=== PATIENT | male | born 1975 | race African-American/Black ===

== ENCOUNTER 2018-01-14 04:14 | Inpatient (IN) | payer MEDICARE, OTHER ==
[~2018-01-14] VITALS: Ht 182.9 cm; Wt 106.6 kg
[2018-01-14 06:15] VITALS: BP 172/123
[2018-01-14] MEDS ORDERED: SEROQUEL200 MG ORAL (06:45)
[2018-01-14] MEDS ORDERED: HYDROCORTISONE30 G2 TP (06:45)
[2018-01-14] MEDS ORDERED: KLONOPIN1 MG ORAL (06:45)
[2018-01-14] MEDS ORDERED: NORVASC10 MG ORAL (06:45)
[2018-01-14] MEDS ORDERED: LISINOPRIL20 MG ORAL (06:45)
[2018-01-14] MEDS ORDERED: ACETAMINOPHEN325 M1 ORAL (06:45)
[2018-01-14 08:00] VITALS: BP 178/119
[2018-01-14] MEDS: Lisinopril 20mg tab ORAL SCH (09:17)
[2018-01-14 10:34] LABS: BASOPHILS % (AUTO) 1.2 % (0.0-2.0); EOSINOPHILS % (AUTO) 4.1 % (0.0-3.0); HEMATOCRIT 40.2 % (42.0-52.0); HEMOGLOBIN 13.7 G/DL (14.2-18.0); LYMPHOCYTES % (AUTO) 20.9 % (20.0-45.0); MEAN CORPUSCULAR VOLUME 94 FL (80-99); MONOCYTES % (AUTO) 9.7 % (1.0-10.0); NEUTROPHILS % (AUTO) 64.1 % (45.0-75.0); PLATELET COUNT 197 K/UL (150-450); RED BLOOD COUNT 4.26 M/UL (4.70-6.10); WHITE BLOOD COUNT 9.4 K/UL (4.8-10.8)
[2018-01-14 10:45] LABS: ALANINE AMINOTRANSFERASE 30 U/L (12-78); ALBUMIN 3.4 G/DL (3.4-5.0); ALBUMIN/GLOBULIN RATIO 0.9 (1.0-2.7); ALKALINE PHOSPHATASE 55 U/L (46-116); ANION GAP 6 mmol/L (5-15); ASPARTATE AMINO TRANSFERASE 27 U/L (15-37); BILIRUBIN,TOTAL 0.3 MG/DL (0.2-1.0); BLOOD UREA NITROGEN 29 mg/dL (7-18); CALCIUM 9.1 MG/DL (8.5-10.1); CARBON DIOXIDE 27 MMOL/L (21-32); CHLORIDE 105 MMOL/L (98-107); CREATININE 1.7 MG/DL (0.55-1.30); PHOSPHORUS 3.5 MG/DL (2.5-4.9); POTASSIUM 3.7 MMOL/L (3.5-5.1); SODIUM 138 MMOL/L (136-145)
--- NOTE | 2018-01-14 11:25 | Consultation ---
History of Present Illness General Date patient seen: Jan 14, 2018 Present Illness HPI 42 year old male with hx of HTN, Schizophrenia, depression, cocaine abuse, presented to [facility] with CC of substernal heaviness and pain the pt stated that he is having AH no si/hi Allergies: Coded Allergies: HALOPERIDOL (Verified Allergy, Unknown, 01/14/18) Medication History Scheduled Amlodipine Besylate (Norvasc), 10 MG ORAL DAILY, (Reported) Clonazepam* (Klonopin*), 1 MG ORAL TID, (Reported) Hydrocortisone (Hydrocortisone Cream 2.5%), 1 APPLIC TP BID, (Reported) Lisinopril (Lisinopril*), 20 MG ORAL DAILY, (Reported) Quetiapine Fumarate* (Seroquel*), 200 MG ORAL BEDTIME, (Reported) Scheduled PRN Acetaminophen* (Acetaminophen 325MG Tablet*), 325 MG ORAL Q4H PRN for Mild Pain (Pain Scale 1-3), (Reported) Patient History Limited by: medical condition History Provided By: Patient, Medical Record, PMD Healthcare decision maker Resuscitation status Full Code Advanced Directive on File Past Medical/Surgical History Past Medical/Surgical History: (1) Cannabis abuse (2) Cocaine abuse (3) Schizophrenia (4) Hypertension (5) Acute coronary syndrome Review of Systems Psychiatric: Reports: prior hx, anxiety, depressed feelings Physical Exam General Appearance: no apparent distress, alert Neurologic: oriented x 3, responsive, depressed affect Last 24 Hour Vital Signs Date Time Temp Pulse Resp B/P (MAP) Pulse Ox O2 Delivery O2 Flow Rate FiO2 01/14/18 09:22 Room Air 01/14/18 09:17 178/119 01/14/18 09:17 67 178/119 01/14/18 08:00 97.7 67 18 178/119 (138) 96 97.7 01/14/18 06:40 Room Air 01/14/18 06:15 96.6 64 18 172/123 (139) 97 96.6 Laboratory Tests Test 01/14/18 09:50 White Blood Count 9.4 K/UL (4.8-10.8) Red Blood Count 4.26 M/UL (4.70-6.10) L Hemoglobin 13.7 G/DL (14.2-18.0) L Hematocrit 40.2 % (42.0-52.0) L Mean Corpuscular Volume 94 FL (80-99) Mean Corpuscular Hemoglobin 32.2 PG (27.0-31.0) H Mean Corpuscular Hemoglobin Concent 34.1 G/DL (32.0-36.0) Red Cell Distribution Width 12.0 % (11.6-14.8) Platelet Count 197 K/UL (150-450) Mean Platelet Volume 7.9 FL (6.5-10.1) Neutrophils (%) (Auto) 64.1 % (45.0-75.0) Lymphocytes (%) (Auto) 20.9 % (20.0-45.0) Monocytes (%) (Auto) 9.7 % (1.0-10.0) Eosinophils (%) (Auto) 4.1 % (0.0-3.0) H Basophils (%) (Auto) 1.2 % (0.0-2.0) Sodium Level 138 MMOL/L (136-145) Potassium Level 3.7 MMOL/L (3.5-5.1) Chloride Level 105 MMOL/L (98-107) Carbon Dioxide Level 27 MMOL/L (21-32) Anion Gap 6 mmol/L (5-15) Blood Urea Nitrogen 29 mg/dL (7-18) H Creatinine 1.7 MG/DL (0.55-1.30) H Estimat Glomerular Filtration Rate 54.4 mL/min (>60) Glucose Level 108 MG/DL (74-106) H Calcium Level 9.1 MG/DL (8.5-10.1) Phosphorus Level 3.5 MG/DL (2.5-4.9) Magnesium Level 1.9 MG/DL (1.8-2.4) Total Bilirubin 0.3 MG/DL (0.2-1.0) Aspartate Amino Transf (AST/SGOT) 27 U/L (15-37) Alanine Aminotransferase (ALT/SGPT) 30 U/L (12-78) Alkaline Phosphatase 55 U/L (46-116) Troponin I 0.035 ng/mL (0.000-0.056) Total Protein 7.2 G/DL (6.4-8.2) Albumin 3.4 G/DL (3.4-5.0) Globulin 3.8 g/dL Albumin/Globulin Ratio 0.9 (1.0-2.7) L Height (Feet): 6 Weight (Pounds): 235 Medications Current Medications Medications (Trade) Dose Ordered Sig/Matthias Route PRN Reason Start Time Stop Time Status Last Admin Dose Admin Acetaminophen (Tylenol) 650 mg Q6H PRN ORAL Mild Pain/Temp > 100.5 01/14/18 09:00 02/13/18 08:59 Amlodipine Besylate (Norvasc) 10 mg DAILY ORAL 01/14/18 09:00 02/13/18 08:59 01/14/18 09:17 Clonazepam (KlonoPIN) 1 mg Q8H PRN ORAL For Anxiety 01/14/18 09:00 01/21/18 08:59 01/14/18 10:52 Clonidine HCl (Catapres Tab) 0.1 mg Q6H PRN ORAL For High Blood Pressure 01/14/18 09:15 02/13/18 09:14 Heparin Sodium (Porcine) (Heparin 5000 units/ml) 5,000 units EVERY 12 HOURS SUBQ 01/14/18 21:00 02/13/18 20:59 Lisinopril (Prinivil) 20 mg DAILY ORAL 01/14/18 09:00 02/13/18 08:59 01/14/18 09:17 Quetiapine Fumarate (SEROquel) 200 mg HSPRN PRN ORAL Insomnia 01/14/18 21:00 02/13/18 20:59 Assessment/Plan Status: stable Assessment/Plan Schizophrenia, depression, cocaine abuse not at imminent dts/dto -seroquel 200mg qhs -klonopin 1mg qhs Wagner Lantigua MD Jan 14, 2018 11:25
[2018-01-14 12:00] VITALS: BP 162/111
--- NOTE | 2018-01-14 12:52 | Consultation ---
History of Present Illness Present Illness HPI 42 year old male with hx of HTN, Schizophrenia, depression, cocaine abuse, presented to [facility] with CC of substernal heaviness associated with shortness of breath, he had some cocaine 12 hours earlier. He was also c/o painless hematuria. On presentation to [place], he was asymptomatic. Once an acute MO was ruled out at [place], he was transferred to [place] for further treatment. Allergies: Coded Allergies: HALOPERIDOL (Verified Allergy, Unknown, 01/14/18) Medication History Scheduled Amlodipine Besylate (Norvasc), 10 MG ORAL DAILY, (Reported) Clonazepam* (Klonopin*), 1 MG ORAL TID, (Reported) Hydrocortisone (Hydrocortisone Cream 2.5%), 1 APPLIC TP BID, (Reported) Lisinopril (Lisinopril*), 20 MG ORAL DAILY, (Reported) Quetiapine Fumarate* (Seroquel*), 200 MG ORAL BEDTIME, (Reported) Scheduled PRN Acetaminophen* (Acetaminophen 325MG Tablet*), 325 MG ORAL Q4H PRN for Mild Pain (Pain Scale 1-3), (Reported) Patient History Healthcare decision maker Resuscitation status Full Code Advanced Directive on File Past Medical/Surgical History Past Medical/Surgical History: (1) Cocaine abuse (2) Cannabis abuse (3) Hypertension (4) Schizophrenia Review of Systems All Other Systems: negative except mentioned in HPI Physical Exam General Appearance: WD/WN Lines, tubes and drains: peripheral HEENT: normocephalic, atraumatic Neck: non-tender, normal alignment Respiratory/Chest: chest wall non-tender, lungs clear Breasts: no masses Cardiovascular/Chest: normal peripheral pulses Abdomen: normal bowel sounds, non tender Genitourinary/Rectal: normal genital exam Extremities: normal range of motion Last 24 Hour Vital Signs Date Time Temp Pulse Resp B/P (MAP) Pulse Ox O2 Delivery O2 Flow Rate FiO2 01/14/18 09:22 Room Air 01/14/18 09:17 178/119 01/14/18 09:17 67 178/119 01/14/18 08:00 97.7 67 18 178/119 (138) 96 97.7 01/14/18 06:40 Room Air 01/14/18 06:15 96.6 64 18 172/123 (139) 97 96.6 Laboratory Tests Test 01/14/18 09:50 White Blood Count 9.4 K/UL (4.8-10.8) Red Blood Count 4.26 M/UL (4.70-6.10) L Hemoglobin 13.7 G/DL (14.2-18.0) L Hematocrit 40.2 % (42.0-52.0) L Mean Corpuscular Volume 94 FL (80-99) Mean Corpuscular Hemoglobin 32.2 PG (27.0-31.0) H Mean Corpuscular Hemoglobin Concent 34.1 G/DL (32.0-36.0) Red Cell Distribution Width 12.0 % (11.6-14.8) Platelet Count 197 K/UL (150-450) Mean Platelet Volume 7.9 FL (6.5-10.1) Neutrophils (%) (Auto) 64.1 % (45.0-75.0) Lymphocytes (%) (Auto) 20.9 % (20.0-45.0) Monocytes (%) (Auto) 9.7 % (1.0-10.0) Eosinophils (%) (Auto) 4.1 % (0.0-3.0) H Basophils (%) (Auto) 1.2 % (0.0-2.0) Sodium Level 138 MMOL/L (136-145) Potassium Level 3.7 MMOL/L (3.5-5.1) Chloride Level 105 MMOL/L (98-107) Carbon Dioxide Level 27 MMOL/L (21-32) Anion Gap 6 mmol/L (5-15) Blood Urea Nitrogen 29 mg/dL (7-18) H Creatinine 1.7 MG/DL (0.55-1.30) H Estimat Glomerular Filtration Rate 54.4 mL/min (>60) Glucose Level 108 MG/DL (74-106) H Calcium Level 9.1 MG/DL (8.5-10.1) Phosphorus Level 3.5 MG/DL (2.5-4.9) Magnesium Level 1.9 MG/DL (1.8-2.4) Total Bilirubin 0.3 MG/DL (0.2-1.0) Aspartate Amino Transf (AST/SGOT) 27 U/L (15-37) Alanine Aminotransferase (ALT/SGPT) 30 U/L (12-78) Alkaline Phosphatase 55 U/L (46-116) Troponin I 0.035 ng/mL (0.000-0.056) Total Protein 7.2 G/DL (6.4-8.2) Albumin 3.4 G/DL (3.4-5.0) Globulin 3.8 g/dL Albumin/Globulin Ratio 0.9 (1.0-2.7) L Height (Feet): 6 Weight (Pounds): 235 Medications Current Medications Medications (Trade) Dose Ordered Sig/Matthias Route PRN Reason Start Time Stop Time Status Last Admin Dose Admin Acetaminophen (Tylenol) 650 mg Q6H PRN ORAL Mild Pain/Temp > 100.5 01/14/18 09:00 02/13/18 08:59 Amlodipine Besylate (Norvasc) 10 mg DAILY ORAL 01/14/18 09:00 02/13/18 08:59 01/14/18 09:17 Clonazepam (KlonoPIN) 1 mg Q8H PRN ORAL For Anxiety 01/14/18 09:00 01/21/18 08:59 01/14/18 10:52 Clonidine HCl (Catapres Tab) 0.1 mg Q6H PRN ORAL For High Blood Pressure 01/14/18 09:15 02/13/18 09:14 Heparin Sodium (Porcine) (Heparin 5000 units/ml) 5,000 units EVERY 12 HOURS SUBQ 01/14/18 21:00 02/13/18 20:59 Lisinopril (Prinivil) 20 mg DAILY ORAL 01/14/18 09:00 02/13/18 08:59 01/14/18 09:17 Quetiapine Fumarate (SEROquel) 200 mg HSPRN PRN ORAL Insomnia 01/14/18 21:00 02/13/18 20:59 Assessment/Plan Problem List: (1) Acute coronary syndrome ICD Codes: I24.9 - Acute ischemic heart disease, unspecified SNOMED: 427414111 (2) Cocaine abuse ICD Codes: F14.10 - Cocaine abuse, uncomplicated SNOMED: 09283243 (3) Cannabis abuse ICD Codes: F12.10 - Cannabis abuse, uncomplicated SNOMED: 93261452 (4) Hypertension ICD Codes: I10 - Essential (primary) hypertension SNOMED: 35349775 (5) Schizophrenia ICD Codes: F20.9 - Schizophrenia, unspecified SNOMED: 21609548 Assessment/Plan serial ekg, troponin, echo cardiology to see psych f/u for schizophrenia monitor BP symptomatic treatment Cristin Page MD Jan 14, 2018 12:52
[2018-01-14 16:00] VITALS: BP 157/107
--- NOTE | 2018-01-14 18:43 | History & Physical ---
History and Physical History & Physicial Dictated for Int Med-Dr Franz no. [id number] Wilberto Martinez MD Jan 14, 2018 18:43
[2018-01-14] MEDS ORDERED: Lexiscan 0.4mg/5ml syringe IV PRN (18:45)
[2018-01-14 20:00] VITALS: BP 156/96
[2018-01-14] MEDS ORDERED: QUEtiapine 200mg tab ORAL PRN (21:00)
[2018-01-14] MEDS: Heparin 5000 units/ml inj SUBQ SCH (21:00)
--- NOTE | 2018-01-14 23:45 | History and Physical Report ---
DATE OF ADMISSION: 01/14/2018 CHIEF COMPLAINT: The patient is a 42-year-old male, who presents with a chief complaint of shortness of breath, chest pain, and hematuria. HISTORY OF PRESENT ILLNESS: Began on 01/13/2018. The patient began to experience shortness of breath. The patient then started to experience tightness in his chest. The patient denies corinne chest pain, however, states his chest felt "tight." This was substernal. The patient also said he had one episode of bright red blood in his urine. The patient initially presented to [facility] emergency room. The patient is transferred to [facility] for insurance purposes. The patient is admitted for shortness of breath and chest tightness to rule out acute coronary syndrome. The patient is also admitted for hematuria. PAST MEDICAL HISTORY: Significant for, 1. Hypertension. 2. Schizoaffective disorder. PAST SURGICAL HISTORY: Significant for laparoscopic cholecystectomy. CURRENT MEDICATIONS: 1. Klonopin 2 mg one tablet p.o. 3 times daily. 2. Seroquel 300 mg one tablet p.o. at bedtime. 3. Prozac 40 mg p.o. daily. 4. Hydrochlorothiazide 25 mg one tablet p.o. daily. 5. Amlodipine 10 mg p.o. daily. 6. Ideal 10/325 mg one tablet p.o. q.6 h. p.r.n. ALLERGIES: . SOCIAL HISTORY: The patient is single and lives with roommates. The patient admits to tobacco use one pack of cigarettes daily. The patient denies alcohol use. REVIEW OF SYSTEMS: CONSTITUTIONAL: The patient denies weight loss or weight gain. The patient denies fevers or chills. HEENT: The patient denies ear or throat pain. The patient denies headache. CARDIOVASCULAR: The patient complains of chest tightness as above. The patient denies palpitations. CHEST: The patient complains of shortness of breath as above. The patient denies wheezes. ABDOMEN: The patient denies nausea, vomiting, diarrhea, or constipation. GENITOURINARY: The patient denies dysuria or increased frequency of urination. NEUROMUSCULAR: The patient denies seizures or generalized weakness. PHYSICAL EXAMINATION: VITAL SIGNS: Temperature 97.7, respirations 18, pulse 67, and blood pressure 178/119. GENERAL: The patient is a well-developed and well-nourished male, in no apparent distress. HEENT: Eyes, pupils are equal and responsive to light and accommodation. Extraocular movements are intact. NECK: Supple without lymphadenopathy. CHEST: Lungs are clear to auscultation bilaterally without wheezes or rales. CARDIOVASCULAR: Regular rhythm and rate. S1 and S2 are normal without murmurs, rubs, or gallops. ABDOMEN: Soft, nontender, and nondistended. Positive bowel sounds. No evidence of hepatosplenomegaly. Currently, no rebound or guarding noted. EXTREMITIES: Negative for clubbing, cyanosis, or edema. RECTAL/GENITAL: Not performed. NEUROLOGIC: Cranial nerves II through XII are grossly intact without focal deficits. Motor strength is 5/5 bilaterally. Deep tendon reflexes are 2+ plantar. LABORATORY STUDIES: WBC 9.4, hemoglobin 13.7, hematocrit 40.2, and platelets 197,000. Sodium 138, potassium 3.7, chloride 105, CO2 27, BUN 29, creatinine 1.7, and glucose 108. Troponin 0.035. ASSESSMENT: This is a 42-year-old male. 1. Shortness of breath. 2. Chest pain. 3. Uncontrolled hypertension. 4. Schizoaffective disorder. TREATMENT: 1. Shortness of breath/chest pain. A Cardiology consultation is pending with Dr. Mcneal. We will follow recommendation of Cardiology. A Cardiolite stress test is pending. 2. Uncontrolled hypertension. The patient has been restarted on hydrochlorothiazide and amlodipine as above. 3. Schizoaffective disorder. Continue clonazepam, Prozac, and Seroquel as above. 4. Hematuria. A urine culture is pending. A urinalysis is pending. Wilberto Martinez M.D. DR: MODESTO JOB#: [id number] CC:
[2018-01-15] VITALS: BP 152/95
[2018-01-15 04:00] VITALS: BP 156/94
[2018-01-15 07:44] LABS: BASOPHILS % (AUTO) 1.2 % (0.0-2.0); EOSINOPHILS % (AUTO) 3.8 % (0.0-3.0); HEMATOCRIT 40.4 % (42.0-52.0); HEMOGLOBIN 13.5 G/DL (14.2-18.0); LYMPHOCYTES % (AUTO) 30.5 % (20.0-45.0); MEAN CORPUSCULAR VOLUME 95 FL (80-99); MONOCYTES % (AUTO) 8.4 % (1.0-10.0); NEUTROPHILS % (AUTO) 56.2 % (45.0-75.0); PLATELET COUNT 197 K/UL (150-450); RED BLOOD COUNT 4.24 M/UL (4.70-6.10); RED CELL DISTRIBUTION WIDTH 12.4 % (11.6-14.8); WHITE BLOOD COUNT 8.5 K/UL (4.8-10.8)
[2018-01-15 08:00] VITALS: BP 151/100
[2018-01-15 08:06] LABS: ANION GAP 7 mmol/L (5-15); BLOOD UREA NITROGEN 39 mg/dL (7-18); CALCIUM 8.9 MG/DL (8.5-10.1); CARBON DIOXIDE 26 MMOL/L (21-32); CHLORIDE 106 MMOL/L (98-107); POTASSIUM 4.1 MMOL/L (3.5-5.1); SODIUM 139 MMOL/L (136-145)
[2018-01-15] MEDS: Heparin 5000 units/ml inj SUBQ SCH (09:00)
[2018-01-15] MEDS: Lisinopril 20mg tab ORAL SCH (09:00)
--- NOTE | 2018-01-15 10:39 | Consultation ---
History of Present Illness General Date patient seen: Jan 15, 2018 Time patient seen: 10:28 Present Illness HPI 42 year old male with uncontrolled hypertension, CKD, Schizophrenia, depression , cocaine abuse presents with chest pain, plan for stress test. Troponin negative x2, echo with preserved LV function but evidence of hypertensive heart disease Allergies: Coded Allergies: HALOPERIDOL (Verified Allergy, Unknown, 01/14/18) Medication History Scheduled Amlodipine Besylate (Norvasc), 10 MG ORAL DAILY, (Reported) Clonazepam* (Klonopin*), 1 MG ORAL TID, (Reported) Hydrocortisone (Hydrocortisone Cream 2.5%), 1 APPLIC TP BID, (Reported) Lisinopril (Lisinopril*), 20 MG ORAL DAILY, (Reported) Quetiapine Fumarate* (Seroquel*), 200 MG ORAL BEDTIME, (Reported) Scheduled PRN Acetaminophen* (Acetaminophen 325MG Tablet*), 325 MG ORAL Q4H PRN for Mild Pain (Pain Scale 1-3), (Reported) Patient History Healthcare decision maker Resuscitation status Full Code Advanced Directive on File Review of Systems Constitutional: Reports: no symptoms Eye: Reports: no symptoms ENT: Reports: no symptoms Respiratory: Reports: no symptoms Cardiovascular: Reports: chest pain Gastrointestinal: Reports: no symptoms Genitourinary: Reports: no symptoms Musculoskeletal: Reports: no symptoms Skin: Reports: no symptoms Psychiatric: Reports: no symptoms Neurological: Reports: no symptoms Endocrine: Reports: no symptoms Hematologic/Lymphatic: Reports: no symptoms Physical Exam General Appearance: no apparent distress, alert Lines, tubes and drains: peripheral HEENT: normocephalic, atraumatic, anicteric, mucous membranes moist Neck: non-tender, normal alignment, supple Respiratory/Chest: chest wall non-tender, lungs clear Cardiovascular/Chest: normal peripheral pulses, normal rate, regular rhythm Abdomen: normal bowel sounds, non tender Extremities: normal range of motion, non-tender 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 Last 24 Hour Vital Signs Date Time Temp Pulse Resp B/P (MAP) Pulse Ox O2 Delivery O2 Flow Rate FiO2 01/15/18 04:00 97.7 63 20 156/94 (114) 95 97.7 01/15/18 04:00 69 01/15/18 00:00 83 01/15/18 00:00 97.8 70 20 152/95 (114) 97 97.8 01/14/18 20:00 Room Air 01/14/18 20:00 100 01/14/18 20:00 98.1 74 20 156/96 (116) 98 98.1 01/14/18 18:30 98.1 01/14/18 17:56 98.1 01/14/18 16:00 97.3 63 18 157/107 (124) 99 97.3 01/14/18 16:00 68 01/14/18 12:00 72 01/14/18 12:00 98.1 66 18 162/111 (128) 97 98.1 Intake and Output 01/14/18 01/15/18 19:00 07:00 Intake Total 620 ml 500 ml Balance 620 ml 500 ml Intake Oral 620 ml 500 ml # Voids 3 Laboratory Tests Test 01/15/18 06:35 White Blood Count 8.5 K/UL (4.8-10.8) Red Blood Count 4.24 M/UL (4.70-6.10) L Hemoglobin 13.5 G/DL (14.2-18.0) L Hematocrit 40.4 % (42.0-52.0) L Mean Corpuscular Volume 95 FL (80-99) Mean Corpuscular Hemoglobin 31.9 PG (27.0-31.0) H Mean Corpuscular Hemoglobin Concent 33.5 G/DL (32.0-36.0) Red Cell Distribution Width 12.4 % (11.6-14.8) Platelet Count 197 K/UL (150-450) Mean Platelet Volume 8.3 FL (6.5-10.1) Neutrophils (%) (Auto) 56.2 % (45.0-75.0) Lymphocytes (%) (Auto) 30.5 % (20.0-45.0) Monocytes (%) (Auto) 8.4 % (1.0-10.0) Eosinophils (%) (Auto) 3.8 % (0.0-3.0) H Basophils (%) (Auto) 1.2 % (0.0-2.0) Sodium Level 139 MMOL/L (136-145) Potassium Level 4.1 MMOL/L (3.5-5.1) Chloride Level 106 MMOL/L (98-107) Carbon Dioxide Level 26 MMOL/L (21-32) Anion Gap 7 mmol/L (5-15) Blood Urea Nitrogen 39 mg/dL (7-18) H Creatinine 2.0 MG/DL (0.55-1.30) H Estimat Glomerular Filtration Rate 45.1 mL/min (>60) Glucose Level 95 MG/DL (74-106) Calcium Level 8.9 MG/DL (8.5-10.1) Troponin I 0.022 ng/mL (0.000-0.056) Height (Feet): 6 Weight (Pounds): 235 Medications Current Medications Medications (Trade) Dose Ordered Sig/Matthias Route PRN Reason Start Time Stop Time Status Last Admin Dose Admin Acetaminophen (Tylenol) 650 mg Q6H PRN ORAL Mild Pain/Temp > 100.5 01/14/18 09:00 02/13/18 08:59 01/15/18 05:55 Amlodipine Besylate (Norvasc) 10 mg DAILY ORAL 01/14/18 09:00 02/13/18 08:59 01/14/18 09:17 Clonazepam (KlonoPIN) 1 mg Q8H PRN ORAL For Anxiety 01/14/18 09:00 01/21/18 08:59 01/15/18 05:56 Clonidine HCl (Catapres Tab) 0.1 mg Q6H PRN ORAL For High Blood Pressure 01/14/18 09:15 02/13/18 09:14 Heparin Sodium (Porcine) (Heparin 5000 units/ml) 5,000 units EVERY 12 HOURS SUBQ 01/14/18 21:00 02/13/18 20:59 Hydrocortisone (Anusol HC) 1 applic BIDPRN PRN TOPIC Itching/Pruritis 01/14/18 13:15 02/13/18 13:14 01/14/18 17:56 Lisinopril (Prinivil) 20 mg DAILY ORAL 01/14/18 09:00 02/13/18 08:59 01/14/18 09:17 Quetiapine Fumarate (SEROquel) 200 mg BEDTIME ORAL 01/15/18 21:00 02/14/18 20:59 Regadenoson (Lexiscan) 0.4 mg ONCE PRN IV STRESS TEST 01/14/18 18:45 01/15/18 23:59 Temazepam (Restoril) 15 mg HSPRN PRN ORAL Insomnia 01/14/18 21:00 01/21/18 20:59 Assessment/Plan Status: stable Assessment/Plan Assessment: Chest pain CKD/LISA Hypertensive heart disease Hypertension Cocaine abuse Schizophrenia Plan: Echo reviewed Stress test pending ACS ruled out with troponin Add alpha radames for hypertension management given hx of cocaine abuse: Start cardura 2 mg, continue Norvasc Salt restriction substance abuse counseling Graham Mcneal MD Jan 15, 2018 10:39
[2018-01-15 11:18] VITALS: BP 136/88
--- NOTE | 2018-01-15 11:42 | Pulmonology Progress Note ---
Assessment/Plan Problems: (1) Acute coronary syndrome (2) Cocaine abuse (3) Cannabis abuse (4) Hypertension (5) Schizophrenia Assessment/Plan stress test today no new complains ;no more episode of hematuria renal function stable Subjective ROS Limited/Unobtainable: No Constitutional: Reports: no symptoms HEENT: Repors: no symptoms Allergies: Coded Allergies: HALOPERIDOL (Verified Allergy, Unknown, 01/14/18) Objective Last 24 Hour Vital Signs Date Time Temp Pulse Resp B/P (MAP) Pulse Ox O2 Delivery O2 Flow Rate FiO2 01/15/18 11:18 63 136/88 (104) 01/15/18 09:00 Room Air 01/15/18 08:00 69 01/15/18 08:00 96.3 59 20 151/100 (117) 100 96.3 01/15/18 04:00 97.7 63 20 156/94 (114) 95 97.7 01/15/18 04:00 69 01/15/18 00:00 83 01/15/18 00:00 97.8 70 20 152/95 (114) 97 97.8 01/14/18 20:00 Room Air 01/14/18 20:00 100 01/14/18 20:00 98.1 74 20 156/96 (116) 98 98.1 01/14/18 18:30 98.1 01/14/18 17:56 98.1 01/14/18 16:00 97.3 63 18 157/107 (124) 99 97.3 01/14/18 16:00 68 01/14/18 12:00 72 01/14/18 12:00 98.1 66 18 162/111 (128) 97 98.1 Intake and Output 01/14/18 01/15/18 19:00 07:00 Intake Total 620 ml 500 ml Balance 620 ml 500 ml Intake Oral 620 ml 500 ml # Voids 3 General Appearance: WD/WN HEENT: normocephalic, atraumatic Respiratory/Chest: chest wall non-tender, lungs clear Cardiovascular: normal peripheral pulses, normal rate Abdomen: normal bowel sounds, soft, non tender Extremities: no cyanosis 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, alert Lymphatic: no neck adenopathy Laboratory Tests 01/15/18 06:35: White Blood Count 8.5, Red Blood Count 4.24L, Hemoglobin 13.5L, Hematocrit 40.4L , Mean Corpuscular Volume 95, Mean Corpuscular Hemoglobin 31.9H, Mean Corpuscular Hemoglobin Concent 33.5, Red Cell Distribution Width 12.4, Platelet Count 197, Mean Platelet Volume 8.3, Neutrophils (%) (Auto) 56.2, Lymphocytes (% ) (Auto) 30.5, Monocytes (%) (Auto) 8.4, Eosinophils (%) (Auto) 3.8H, Basophils (%) (Auto) 1.2, Sodium Level 139, Potassium Level 4.1, Chloride Level 106, Carbon Dioxide Level 26, Anion Gap 7, Blood Urea Nitrogen 39H, Creatinine 2.0H, Estimat Glomerular Filtration Rate 45.1, Glucose Level 95, Calcium Level 8.9, Troponin I 0.022 Current Medications Medications (Trade) Dose Ordered Sig/Matthias Route PRN Reason Start Time Stop Time Status Last Admin Dose Admin Acetaminophen (Tylenol) 650 mg Q6H PRN ORAL Mild Pain/Temp > 100.5 01/14/18 09:00 02/13/18 08:59 01/15/18 05:55 Amlodipine Besylate (Norvasc) 10 mg DAILY ORAL 01/14/18 09:00 02/13/18 08:59 01/14/18 09:17 Clonazepam (KlonoPIN) 1 mg Q8H PRN ORAL For Anxiety 01/14/18 09:00 01/21/18 08:59 01/15/18 05:56 Clonidine HCl (Catapres Tab) 0.1 mg Q6H PRN ORAL For High Blood Pressure 01/14/18 09:15 02/13/18 09:14 Doxazosin Mesylate (Cardura) 2 mg DAILY ORAL 01/16/18 09:00 02/15/18 08:59 Heparin Sodium (Porcine) (Heparin 5000 units/ml) 5,000 units EVERY 12 HOURS SUBQ 01/14/18 21:00 02/13/18 20:59 Hydrocortisone (Anusol HC) 1 applic BIDPRN PRN TOPIC Itching/Pruritis 01/14/18 13:15 02/13/18 13:14 01/14/18 17:56 Lisinopril (Prinivil) 20 mg DAILY ORAL 01/14/18 09:00 02/13/18 08:59 01/14/18 09:17 Quetiapine Fumarate (SEROquel) 200 mg BEDTIME ORAL 01/15/18 21:00 02/14/18 20:59 Regadenoson (Lexiscan) 0.4 mg ONCE PRN IV STRESS TEST 01/14/18 18:45 01/15/18 23:59 Temazepam (Restoril) 15 mg HSPRN PRN ORAL Insomnia 01/14/18 21:00 01/21/18 20:59 Cristin Pgae MD Jan 15, 2018 11:42
[2018-01-15 12:00] VITALS: BP 136/88
--- NOTE | 2018-01-15 13:52 | General Progress Note ---
Assessment/Plan Assessment/Plan Schizophrenia, depression, cocaine abuse not at imminent dts/dto -seroquel 200mg qhs -klonopin 1mg qhs Subjective Date patient seen: Jan 15, 2018 Neurologic/Psychiatric: Reports: anxiety, depressed, emotional problems Allergies: Coded Allergies: HALOPERIDOL (Verified Allergy, Unknown, 01/14/18) Objective Last 24 Hour Vital Signs Date Time Temp Pulse Resp B/P (MAP) Pulse Ox O2 Delivery O2 Flow Rate FiO2 01/15/18 11:18 63 136/88 (104) 01/15/18 09:00 Room Air 01/15/18 08:00 69 01/15/18 08:00 96.3 59 20 151/100 (117) 100 96.3 01/15/18 04:00 97.7 63 20 156/94 (114) 95 97.7 01/15/18 04:00 69 01/15/18 00:00 83 01/15/18 00:00 97.8 70 20 152/95 (114) 97 97.8 01/14/18 20:00 Room Air 01/14/18 20:00 100 01/14/18 20:00 98.1 74 20 156/96 (116) 98 98.1 01/14/18 18:30 98.1 01/14/18 17:56 98.1 01/14/18 16:00 97.3 63 18 157/107 (124) 99 97.3 01/14/18 16:00 68 Intake and Output 01/14/18 01/15/18 19:00 07:00 Intake Total 620 ml 500 ml Balance 620 ml 500 ml Intake Oral 620 ml 500 ml # Voids 3 Laboratory Tests 01/15/18 06:35: White Blood Count 8.5, Red Blood Count 4.24L, Hemoglobin 13.5L, Hematocrit 40.4L , Mean Corpuscular Volume 95, Mean Corpuscular Hemoglobin 31.9H, Mean Corpuscular Hemoglobin Concent 33.5, Red Cell Distribution Width 12.4, Platelet Count 197, Mean Platelet Volume 8.3, Neutrophils (%) (Auto) 56.2, Lymphocytes (% ) (Auto) 30.5, Monocytes (%) (Auto) 8.4, Eosinophils (%) (Auto) 3.8H, Basophils (%) (Auto) 1.2, Sodium Level 139, Potassium Level 4.1, Chloride Level 106, Carbon Dioxide Level 26, Anion Gap 7, Blood Urea Nitrogen 39H, Creatinine 2.0H, Estimat Glomerular Filtration Rate 45.1, Glucose Level 95, Calcium Level 8.9, Troponin I 0.022 Height (Feet): 6 Weight (Pounds): 235 General Appearance: no apparent distress, alert Neurologic: oriented x 3, responsive, depressed affect Wagner Lantigua MD Jan 15, 2018 13:52
--- NOTE | 2018-01-15 14:39 | Diagnostic Imaging Report ---
Indication: chest pain Technique: The study was conducted under the supervision of a it systems engineer. lexiscan (regadenoson) infusion over 10 seconds followed by intravenous administration of 32.5 mCi of technetium 99m Myoview was performed. Three plane SPECT imaging of the heart was then performed. A resting study was performed as part of the one-day protocol with 10.8 mCi of technetium 99m myoview injected intravenously at that time. Three plane SPECT imaging of the heart was obtained. Comparison: None Clinical data: 1. Clinical response: Non ischemic 2. Electrocardiographic response: Non ischemic Findings: The myocardial perfusion scan demonstrates no definite fixed or reversible perfusion defects. There is some hypoperfusion of the inferior wall which is probably due to diaphragmatic attenuation. There are no reversible segments identified to suggest ischemia. Left ventricular ejection fraction is estimated at 56% which is in the lower side of normal. IMPRESSION: Negative myocardial perfusion scan. LVEF estimated at 56%
--- NOTE | 2018-01-15 15:32 | Cardiology Report ---
APPROVED REPORT EKG Measurement Heart [id number] Normal sinus rhythm T wave abnormality, consider lateral ischemia Abnormal ECG
[2018-01-15 16:00] VITALS: BP 138/78
--- NOTE | 2018-01-15 18:52 | Internal Med Progress Note ---
Subjective Date of Service: Jan 15, 2018 Physician Name Wilberto Martinez Attending Physician Esteban Franz MD Current Medications Medications (Trade) Dose Ordered Sig/Matthias Route PRN Reason Start Time Stop Time Status Last Admin Dose Admin Acetaminophen (Tylenol) 650 mg Q6H PRN ORAL Mild Pain/Temp > 100.5 01/14/18 09:00 02/13/18 08:59 01/15/18 05:55 Amlodipine Besylate (Norvasc) 10 mg DAILY ORAL 01/14/18 09:00 02/13/18 08:59 01/14/18 09:17 Clonazepam (KlonoPIN) 1 mg Q8H PRN ORAL For Anxiety 01/14/18 09:00 01/21/18 08:59 01/15/18 15:24 Clonidine HCl (Catapres Tab) 0.1 mg Q6H PRN ORAL For High Blood Pressure 01/14/18 09:15 02/13/18 09:14 Doxazosin Mesylate (Cardura) 2 mg DAILY ORAL 01/16/18 09:00 02/15/18 08:59 Heparin Sodium (Porcine) (Heparin 5000 units/ml) 5,000 units EVERY 12 HOURS SUBQ 01/14/18 21:00 02/13/18 20:59 Hydrocortisone (Anusol HC) 1 applic BIDPRN PRN TOPIC Itching/Pruritis 01/14/18 13:15 02/13/18 13:14 01/14/18 17:56 Lisinopril (Prinivil) 20 mg DAILY ORAL 01/14/18 09:00 02/13/18 08:59 01/14/18 09:17 Quetiapine Fumarate (SEROquel) 200 mg BEDTIME ORAL 01/15/18 21:00 02/14/18 20:59 Regadenoson (Lexiscan) 0.4 mg ONCE PRN IV STRESS TEST 01/14/18 18:45 01/15/18 23:59 Temazepam (Restoril) 15 mg HSPRN PRN ORAL Insomnia 01/14/18 21:00 01/21/18 20:59 Allergies: Coded Allergies: HALOPERIDOL (Verified Allergy, Unknown, 01/14/18) ROS Limited/Unobtainable: No Constitutional: Reports: no symptoms HEENT: Reports: no symptoms Cardiovascular: Reports: chest pain Respiratory: Reports: shortness of breath Gastrointestinal/Abdominal: Reports: no symptoms Genitourinary: Reports: no symptoms Neurologic/Psychiatric: Reports: no symptoms Subjective 42 YO M admitted with chest pain and shortness of breath. Cover for Cecil Nix-Dr Franz Objective Last Vital Signs Date Time Temp Pulse Resp B/P (MAP) Pulse Ox O2 Delivery O2 Flow Rate FiO2 01/15/18 12:00 96.6 56 20 136/88 (104) 100 96.6 01/15/18 09:00 Room Air General Appearance: WD/WN, no apparent distress, alert EENT: PERRL/EOMI, normal ENT inspection, TMs normal Neck: non-tender, normal alignment, supple, normal inspection Cardiovascular: normal peripheral pulses, normal rate, regular rhythm, no gallop/murmur, no JVD Respiratory/Chest: chest wall non-tender, lungs clear, normal breath sounds, no respiratory distress, no accessory muscle use Abdomen: normal bowel sounds, non tender, soft, no organomegaly, no mass Extremities: normal range of motion, non-tender Neurologic: sheet sorter II-XII grossly normal, no motor/sensory deficits Skin: normal pigmentation, warm/dry Laboratory Tests Test 01/15/18 06:35 White Blood Count 8.5 K/UL (4.8-10.8) Red Blood Count 4.24 M/UL (4.70-6.10) L Hemoglobin 13.5 G/DL (14.2-18.0) L Hematocrit 40.4 % (42.0-52.0) L Mean Corpuscular Volume 95 FL (80-99) Mean Corpuscular Hemoglobin 31.9 PG (27.0-31.0) H Mean Corpuscular Hemoglobin Concent 33.5 G/DL (32.0-36.0) Red Cell Distribution Width 12.4 % (11.6-14.8) Platelet Count 197 K/UL (150-450) Mean Platelet Volume 8.3 FL (6.5-10.1) Neutrophils (%) (Auto) 56.2 % (45.0-75.0) Lymphocytes (%) (Auto) 30.5 % (20.0-45.0) Monocytes (%) (Auto) 8.4 % (1.0-10.0) Eosinophils (%) (Auto) 3.8 % (0.0-3.0) H Basophils (%) (Auto) 1.2 % (0.0-2.0) Sodium Level 139 MMOL/L (136-145) Potassium Level 4.1 MMOL/L (3.5-5.1) Chloride Level 106 MMOL/L (98-107) Carbon Dioxide Level 26 MMOL/L (21-32) Anion Gap 7 mmol/L (5-15) Blood Urea Nitrogen 39 mg/dL (7-18) H Creatinine 2.0 MG/DL (0.55-1.30) H Estimat Glomerular Filtration Rate 45.1 mL/min (>60) Glucose Level 95 MG/DL (74-106) Calcium Level 8.9 MG/DL (8.5-10.1) Troponin I 0.022 ng/mL (0.000-0.056) Microbiology Date/Time Source Procedure Growth Status 01/14/18 19:50 Urine,Clean Catch Urine Culture - Preliminary NO GROWTH Resulted Intake and Output 01/14/18 01/15/18 19:00 07:00 Intake Total 620 ml 500 ml Balance 620 ml 500 ml Intake Oral 620 ml 500 ml # Voids 3 Assessment/Plan Problem List: (1) Chest pain (2) Hematuria Assessment & Plan: Await urinalysis and urine cult (3) Hypertension Assessment & Plan: Uncontrolled-see cardiology recs (4) Schizophrenia Status: not improved Wilberto Martinez MD Jan 15, 2018 18:52
[2018-01-15] MEDS ORDERED: QUEtiapine 200mg tab ORAL SCH (21:00)
[2018-01-16] MEDS ORDERED: Doxazosin 4mg tab ORAL SCH (09:00)
--- NOTE | 2018-01-18 13:17 | Discharge Summary ---
Discharge Summary Discharge Summary _ DATE OF ADMISSION: 01/14/2018 DATE OF DISCHARGE: 01/15/2018. Patient signed against medical advice. REASON FOR ADMISSION: 42 years old male with past medical history of hypertension, schizoaffective disorder, presented to emergency department with chief complaint of shortness of breath and chest pain . Patient initially present presented to [facility] emergency department. Upon evaluation troponin was negative. EKG revealed no acute ischemic changes . No leukocytosis, stable hemoglobin and hematocrit . BUN 29, creatinine 1.7, stable electrolytes . Blood pressure was elevated . Urine toxicology screen was positive for cocaine and cannabis. Patient was subsequently transferred to [facility] with diagnosis of shortness of breath, chest pain rule, out acute coronary syndrome , uncontrolled hypertension ,schizoaffective disorder. CONSULTANTS: middle school music teacher Dr. Mcneal pulmonary Dr. Page psychiatrist [facility] COURSE: Patient admitted to telemetry floor. Serial troponin were negative . EKG revealed no acute ischemic changes . Patient was ruled out for acute coronary syndrome. [employer] closely followed. Blood pressure was managed with calcium channel radames, and shaheed inhibitor. Alpha-radames was added by middle school music teacher for better blood pressure control . Patient was counseled lt on compliance with medication regimen and salt restriction diet. Echocardiogram revealed preserved ejection fraction of 60%, mild to moderate left ventricular hypertrophy, no evidence of wall motion abnormality. Right ventricular systolic pressure of 19. Subsequently myocardial perfusion stress test was done which was negative and revealed estimated left ventricular ejection fraction of 56%. Blood pressure improved with the current regimen. DVT prophylaxis provided. Supplemental oxygen and pulmonary toilet were on board as needed. Pulse oximetry was stable on room air. Patient was counseled on abstinence from illicit street drugs. Renal parameters and electrolytes were closely monitored. Nephrotoxins were avoided. Electrolytes were stable. Psychiatrist seen and evaluated patient, and diagnosed patient with schizophrenia, depression and cocaine abuse. Psychiatrist concluded that the patient was not at imminent danger to self or others. Patient started on Seroquel and Klonopin. Patient decided to sign AGAINST MEDICAL ADVICE. The risks and consequences of signing AGAINST MEDICAL ADVICE were discussed with patient in detail. Patient verbalized understanding, nevertheless signed AMA form and left. FINAL DIAGNOSES: Chest pain Hypertensive heart disease Hypertension Cocaine abuse Schizophrenia Chronic kidney disease versus acute kidney injury Depression I have been assigned to dictate discharge summary for this account. I was not involved in the patient's management. Denisse Jaramillo NP Jan 18, 2018 13:17
== END 2018-01-15 17:47 | disposition left against medical advice (07) | DRG 313 ==
LOC: 2E 05:37
DX: R07.9 Chest pain, unspecified (principal); N17.9 Acute kidney failure, unspecified; I13.10 Hypertensive heart and chronic kidney disease without heart failure, with stage 1 through stage 4 chronic kidney disease, or unspecified chronic kidney disease; N18.9 Chronic kidney disease, unspecified; F14.10 Cocaine abuse, uncomplicated; F20.9 Schizophrenia, unspecified; F32.9 Major depressive disorder, single episode, unspecified; Z90.49 Acquired absence of other specified parts of digestive tract; F17.200 Nicotine dependence, unspecified, uncomplicated; R06.02 Shortness of breath; Z88.8 Allergy status to other drugs, medicaments and biological substances; F12.10 Cannabis abuse, uncomplicated
CPT/HCPCS: 36415; 78452; 80048; 80053; 83735; 84100; 84484; 85025; 87086; 93005; 93017; 93306; J2785